=== PATIENT | female | born 1935 | race African-American/Black ===

== ENCOUNTER 2017-03-07 16:17 | Emergency (ER) | payer MEDICARE, OTHER ==
[~2017-03-07] VITALS: Ht 170.2 cm; Wt 86.2 kg
[~2017-03-07 16:17] MED LIST: ADULT LOW DOSE81 MG PO; AVAPRO300 MG; AVAPRO300 MG PO; BACTRIM DS TAB1 EACH PO; CARVEDILOL25 MG PO; CENTRUM COMPLE1 EACH PO; CLONIDINE; CLORPRES 0.1-11 EACH PO; DARVOCET-N 1001 EACH PO; FUROSEMIDE 40 M40 M1 PO; GLUCOPHAGE850 MG PO; JANUVIA100 MG PO; LOVASTAT10; LOVASTAT10 PO; MOBIC15 MG PO; NORVASC 2.5 MG2.5 MG PO; ONE-A-DAY WOMENS PO; PHENERGAN 25 MG25 M1 PO; PRANDIN; TRAMADOL 50 MG50 MG PO
[2017-03-07 17:05] VITALS: BP 144/84
--- NOTE | 2017-03-11 16:38 | EKG ---
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 : 1935 Requested By: Helen Beltran Order Number: [id number] MD: Arash Rodriguez Measurements Intervals [place] Rate: 60 P: 47 MN: 138 QRS: 46 QRSD: 102 T: 12 QT: 423 QTc: 423 Interpretive Statements Sinus rhythm Probable left atrial enlargement Compared to ECG 02/16/2015 10:32:42 No significant changes Electronically Signed On 03-11-2017 16:38:08 CARBIDE TOOL MAKER by Arash Rodriguez [email or web address] <ELECTRONICALLY SIGNED> By: Arash Rodriguez MD, [facility] 03/11/17 1638 182 19 Arash Rodriguez MD, FACC /EPI
== END 2017-03-07 17:06 | disposition home or self-care (01) ==
LOC: M.ERS 16:17
DX: S09.90XA Unspecified injury of head, initial encounter (principal); I10 Essential (primary) hypertension; E11.9 Type 2 diabetes mellitus without complications; Z88.1 Allergy status to other antibiotic agents; Z88.6 Allergy status to analgesic agent; Z88.8 Allergy status to other drugs, medicaments and biological substances; W22.8XXA Striking against or struck by other objects, initial encounter; Y93.89 Activity, other specified; Y92.89 Other specified places as the place of occurrence of the external cause; Y99.8 Other external cause status

== ENCOUNTER 2017-03-10 16:39 | Emergency (ER) | payer MEDICARE, OTHER ==
[~2017-03-10] VITALS: Ht 170.2 cm; Wt 86.2 kg
[2017-03-10 17:33] LABS: ABSOLUTE BASOPHILS 0.1 thou/uL (0.0-0.2); ABSOLUTE EOSINOPHILS 0.2 thou/uL (0.0-0.7); ABSOLUTE LYMPHOCYTES 2.3 thou/uL (0.8-5.3); ABSOLUTE MONOCYTES 0.5 thou/uL (0.0-1.2); ABSOLUTE NEUTROPHILS 3.2 thou/uL (1.6-8.1); BASOPHILS 1.7 %; EOSINOPHILS 3.3 %; HEMATOCRIT 38.2 % (37.0-47.0); HEMOGLOBIN 12.4 gm/dL (12.0-15.0); LYMPHOCYTES 37.1 %; MCH 30.1 pg (26.0-34.0); MCHC 32.5 g/dL (28.0-37.0); MCV 92.7 fL (80.0-100.0); MONOCYTES 7.8 %; MPV 8.4 fl. (7.2-11.1); NUCLEATED RBCS 0 /100WBC; PLATELET COUNT* 257 thou/uL (150-400); POLYS 50.1 %; RBC 4.12 mil/uL (4.20-5.00); RDW-CV 13.9 % (10.5-14.5); WBC 6.3 thou/uL (4.0-11.0)
[2017-03-10 17:41] LABS: APTT 27.2 Seconds (25.0-31.3); INR 1.1; PROTIME 10.7 Seconds (9.20-11.50)
[2017-03-10 17:47] LABS: ANION GAP 9 mmol/L (7-16); BUN 15 mg/dL (7-18); CHLORIDE 95 mmol/L (98-107); CO2 30 mmol/L (21-32); CREATININE 0.9 mg/dL (0.6-1.3); GLUCOSE 94 mg/dL (70-99); POTASSIUM 3.9 mmol/L (3.5-5.1); SODIUM 134 mmol/L (136-145)
[2017-03-10 17:52] LABS: ALBUMIN 3.9 g/dL (3.4-5.0); ALKALINE PHOSPHATASE 125 U/L (46-116); SGOT 20 U/L (15-37); SGPT 19 U/L (30-65); TOTAL BILIRUBIN 0.4 mg/dL (<0.1-1.0); TOTAL PROTEIN 7.5 g/dL (6.4-8.2); TROPONIN-I LEVEL <0.06 ng/mL (<0.06)
[2017-03-10 18:40] VITALS: BP 158/86
--- NOTE | 2017-03-11 16:38 | EKG ---
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
== END 2017-03-10 18:41 | disposition home or self-care (01) ==
LOC: M.ERS 16:39
PROVIDERS: Nurse Practitioner Family
DX: I10 Essential (primary) hypertension (principal); E11.9 Type 2 diabetes mellitus without complications; Z88.1 Allergy status to other antibiotic agents; Z88.8 Allergy status to other drugs, medicaments and biological substances; Z88.6 Allergy status to analgesic agent

== ENCOUNTER 2017-07-05 00:23 | Inpatient (IN) | payer MEDICARE, OTHER ==
[2017-07-05] VITALS (8 sets, daily range): BP systolic 119–182; BP diastolic 71–96
[~2017-07-05] VITALS: Ht 172.7 cm; Wt 83.9 kg
[2017-07-05 00:41] LABS: ABSOLUTE LYMPHOCYTES 1.4 thou/uL (0.8-5.3); ABSOLUTE MONOCYTES 0.5 thou/uL (0.0-1.2); EOSINOPHILS 1.2 %; HEMATOCRIT 35.7 % (37.0-47.0); HEMOGLOBIN 12.2 gm/dL (12.0-15.0); LYMPHOCYTES 34.8 %; MCH 30.8 pg (26.0-34.0); MCHC 34.2 g/dL (28.0-37.0); MONOCYTES 13.3 %; MPV 6.8 fl. (7.2-11.1); NUCLEATED RBCS 0 /100WBC; PLATELET COUNT* 251 thou/uL (150-400); POLYS 49.7 %; RBC 3.96 mil/uL (4.20-5.00); RDW-CV 14.7 % (10.5-14.5); WBC 4.1 thou/uL (4.0-11.0)
[2017-07-05 01:21] LABS: ANION GAP 6 mmol/L (7-16); BUN 10 mg/dL (7-18); CALCIUM 9.2 mg/dL (8.5-10.1); CHLORIDE 93 mmol/L (98-107); CO2 29 mmol/L (21-32); CREATININE 0.9 mg/dL (0.6-1.3); GLUCOSE 120 mg/dL (70-99); POTASSIUM 3.9 mmol/L (3.5-5.1); SODIUM 128 mmol/L (136-145)
[2017-07-05 01:26] LABS: PROTIME 10.1 Seconds (9.20-11.50)
[2017-07-05 01:32] LABS: ALBUMIN 3.7 g/dL (3.4-5.0); ALKALINE PHOSPHATASE 126 U/L (46-116); NT-PRO BRAIN NAT PEPTIDE 248 pg/mL (<300); SGOT 15 U/L (15-37); SGPT 17 U/L (30-65); TOTAL BILIRUBIN 0.3 mg/dL (<0.1-1.0); TOTAL PROTEIN 7.2 g/dL (6.4-8.2); TROPONIN-I LEVEL <0.06 ng/mL (<0.06)
[2017-07-05 02:17] LABS: URINE BILIRUBIN NEGATIVE (Negative); URINE BLOOD NEGATIVE (Negative); URINE CLARITY CLEAR; URINE COLOR YELLOW; URINE GLUCOSE-RANDOM NEGATIVE (Negative); URINE KETONES NEGATIVE (Negative); URINE LEUKOCYTES-REFLEX NEGATIVE (Negative); URINE NITRITE-REFLEX NEGATIVE (Negative); URINE PROTEIN NEGATIVE (Negative); URINE SPECIFIC GRAVITY 1.015 (1.005-1.030); URINE UROBILINOGEN 0.2 E.U./dl (0.2-1.0)
--- NOTE | 2017-07-05 09:00 | NUR ---
ASSUMED PT. CARE AND RECEIVED REPORT AT 0730. PT A/OX4, VSS WITH BP AT 146/83, MONITOR ON TRACING SB. PT. DENIES CURRENT PAIN, BUT STATES HER LEFT HAND IS HURTING ON/OFF. ON RA @ 98%. FULL ASSESSMENT COMPLETED, REFER TO CHARTING. IVF'S INFUSING PER ORDERS. FALL PRECAUTIONS IN PLACE, CALL LIGHT IN REACH, WILL CONTINUE WITH PLAN OF CARE.
[2017-07-05 11:21] LABS: CALCIUM 8.5 mg/dL (8.5-10.1); CREATININE 0.8 mg/dL (0.6-1.3); POTASSIUM 3.4 mmol/L (3.5-5.1)
--- NOTE | 2017-07-05 11:35 | EKG ---
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 07/05/17 1134 D: 0533 Arash Rodriguez MD, FACC /EPI
--- NOTE | 2017-07-05 20:17 | NUR ---
PT. STABLE THROUGH OUT SHIFT. NO NEW COMPLAINTS, AND STATES LEFT HAND NOT LONGER HURTS. UP TO BATHROOM SEVERAL TIMES WITH ASSISTANCE THROUGH OUT THE DAY. ORTHOSTATICS COMPLETED PER ORDERS, WNL AT THIS TIME. HOURLY ROUNDING COMPLETED THROUGH OUT THE DAY FOR PT. SAFETY.
--- NOTE | 2017-07-05 23:15 | NUR ---
ASSUMED CARE OF PT AT 1900. PT IS ALERT AND ORIENTED. VSS. PERRLA. NO COMPLAINTS OF PAIN. UP WITH STAND BY ASSIST. PT IS IN SINUS RYTHM ON THE TELEMETRY. PT IS RESTING COMFORTABLY IN BED. RESPIRATIONS ARE EVEN AND NONLABORED. WILL CONTINUE TO MONITOR PT.
[2017-07-06] VITALS: BP 134/75
[2017-07-06 04:00] VITALS: BP 136/82
[2017-07-06 05:31] LABS: CALCIUM 8.4 mg/dL (8.5-10.1); CREATININE 0.8 mg/dL (0.6-1.3); MAGNESIUM 1.7 mg/dL (1.8-2.4); POTASSIUM 4.2 mmol/L (3.5-5.1)
[2017-07-06 08:00] VITALS: BP 145/73
[2017-07-06 11:10] VITALS: BP 145/73
[2017-07-06 12:13] VITALS: BP 116/72
[2017-07-06 14:43] VITALS: BP 116/72
--- NOTE | 2017-07-06 16:22 | NUR ---
I ASSUMED CARE OF THE PATIENT AT 0700. SHE IS ALERT AND ORIENTED X4 AND IS UP AD DANTE. PATIENT IS CALM AND KIND. BED IS IN THE LOW LOCKED POSIION AND CALL LIGHT IS IN REACH. HOURLY ROUNDING WAS COMPLETED AND PATIENT NEEDS WERE MET. PAIN IS DENIED. SHE D/C'D TO HOME AT 1530 WITH A PERSONAL VEHICLE AND MEDS WERE PICKED UP FROM PHARMACY. IV WAS D/C'D INTACT. PATIENT'S VITAL SIGNS HAVE BEEN STABLE. DISCHARGE GIVEN AND PATIENT EXPRESSES UNDERSTANDING.
== END 2017-07-06 15:41 | disposition home or self-care (01) | DRG 641 ==
LOC: M.ERS 00:23 → M.TBA-ER 03:06 → M.2W 03:06
PROVIDERS: Emergency Medicine; ADMIT Internal Medicine
DX: E87.1 Hypo-osmolality and hyponatremia (principal); I16.1 Hypertensive emergency; I10 Essential (primary) hypertension; I87.8 Other specified disorders of veins; E11.9 Type 2 diabetes mellitus without complications; Z88.1 Allergy status to other antibiotic agents; Z88.8 Allergy status to other drugs, medicaments and biological substances; Z79.899 Other long term (current) drug therapy

== ENCOUNTER 2017-07-11 00:41 | Inpatient (IN) | payer MEDICARE, OTHER ==
[2017-07-11] VITALS (8 sets, daily range): BP systolic 113–154; BP diastolic 62–109
[~2017-07-11] VITALS: Ht 167.6 cm; Wt 88.5 kg
[2017-07-11 01:10] LABS: ABSOLUTE LYMPHOCYTES 1.1 thou/uL (0.8-5.3); ABSOLUTE MONOCYTES 0.3 thou/uL (0.0-1.2); ABSOLUTE NEUTROPHILS 0.7 thou/uL (1.6-8.1); BASOPHILS 0.7 %; EOSINOPHILS 1.7 %; HEMATOCRIT 33.4 % (37.0-47.0); HEMOGLOBIN 11.7 gm/dL (12.0-15.0); LYMPHOCYTES 52.8 %; MCH 30.7 pg (26.0-34.0); MCHC 35.2 g/dL (28.0-37.0); MCV 87.3 fL (80.0-100.0); MONOCYTES 12.5 %; MPV 7.1 fl. (7.2-11.1); NUCLEATED RBCS 0 /100WBC; PLATELET COUNT* 203 thou/uL (150-400); POLYS 32.3 %; RBC 3.83 mil/uL (4.20-5.00); RDW-CV 14.5 % (10.5-14.5); WBC 2.2 thou/uL (4.0-11.0)
[2017-07-11 01:22] LABS: CALCIUM 8.6 mg/dL (8.5-10.1); CREATININE 0.7 mg/dL (0.6-1.3); POTASSIUM 3.7 mmol/L (3.5-5.1)
[2017-07-11 01:27] LABS: ALBUMIN 3.5 g/dL (3.4-5.0); TOTAL BILIRUBIN 0.4 mg/dL (<0.1-1.0); TOTAL PROTEIN 6.6 g/dL (6.4-8.2)
[2017-07-11 01:54] LABS: URINE BILIRUBIN NEGATIVE (Negative); URINE BLOOD TRACE (Negative); URINE CLARITY CLEAR; URINE COLOR YELLOW; URINE GLUCOSE-RANDOM NEGATIVE (Negative); URINE KETONES NEGATIVE (Negative); URINE LEUKOCYTES-REFLEX NEGATIVE (Negative); URINE NITRITE-REFLEX NEGATIVE (Negative); URINE PROTEIN NEGATIVE (Negative); URINE UROBILINOGEN 0.2 E.U./dl (0.2-1.0)
[2017-07-11 07:16] LABS: ALBUMIN 3.5 g/dL (3.4-5.0); CALCIUM 8.5 mg/dL (8.5-10.1); CREATININE 0.5 mg/dL (0.6-1.3); POTASSIUM 3.5 mmol/L (3.5-5.1); TOTAL BILIRUBIN 0.5 mg/dL (<0.1-1.0); TOTAL PROTEIN 6.8 g/dL (6.4-8.2)
[2017-07-11 14:07] LABS: CALCIUM 8.4 mg/dL (8.5-10.1); CREATININE 0.6 mg/dL (0.6-1.3); POTASSIUM 3.5 mmol/L (3.5-5.1)
--- NOTE | 2017-07-11 16:07 | 2DMMODE ---
[place] [address] 2 D/M-MODE ECHOCARDIOGRAM Name: CATHLEEN DARBY Room: [address] IN [facility]#: [id number] Admission: 07/11/17 Attend Phys: Jacinto Bustamante Discharge: Date of : 33 Date of Service: 07/11/17 1607 Report #: [id number] THIS REPORT FOR: //name// APPROVED REPORT Study performed: 07/11/2017 11:14:49 EXAM: Comprehensive 2D, Doppler, and color-flow Echocardiogram Patient Location: In-Patient Room #: [facility] Status: routine BSA: 1.94 HR: 59 bpm BP: 133/77 mmHg Rhythm: NSR Other Information Study Quality: Good Indications Hypertension/HDD 2D Dimensions LVEF(%): 69.19 (>50%) IVSd: 8.78 (7-11mm) LVOT Diam: 18.45 (18-24mm) LVDd: 41.52 mm PWd: 8.78 (7-11mm) Ascending Ao: 30.37 (22-36mm) LVDs: 25.55 (25-40mm) Aortic Root: 29.07 mm James's LVEF: 69.19 % Volumes Left Atrial Volume (Systole) LA ESV Index: 25.90 mL/m2 Aortic Valve AoV Peak Jonnie.: 1.51 m/s AO Peak Gr.: 9.11 mmHg LVOT Max P.59 mmHg AO Mean Gr.: 4.68 mmHg LVOT Mean P.75 mmHg LVOT Max V: 1.28 m/s AO V2 VTI: 30.15 cm LVOT Mean V: 0.75 m/s MAT (VTI): 2.26 cm2 LVOT V1 VTI: 25.49 cm Mitral Valve E/A Ratio: 0.74 [place] [address] 2 D/M-MODE ECHOCARDIOGRAM Name: CATHLEEN DARBY Room: [address] IN .R.#: [id number] Admission: 07/11/17 Attend Phys: Jacinto Bustamante Discharge: Date of : 33 Date of Service: 07/11/17 1607 Report #: [id number] MV Decel. Time: 278.81 ms MV E Max Jonnie.: 0.81 m/s MV PHT: 80.85 ms MVA (PHT): 2.72 cm2 TDI E/Lateral E': 10.13 E/Medial E': 9.00 Medial E' Jonnie.: 0.09 m/s Lateral E' Jonnie.: 0.08 m/s Pulmonary Valve PV Peak Jonnie.: 0.92 m/s PV Peak Gr.: 3.36 mmHg Tricuspid Valve TR Peak Gr.: 28.22 mmHg RVSP: 33.00 mmHg Left Ventricle The left ventricle is normal size. There is normal LV segmental wall motion. There is normal left ventricular wall thickness. Left ventricular systolic function is normal. The left ventricular ejection fraction is within the normal range. LVEF is 60-65%. Grade I - abnormal relaxation pattern. Right Ventricle The right ventricle is normal size. The right ventricular systolic function is normal. Atria The left atrium size is normal. The right atrium size is normal. Aortic Valve The aortic valve is normal in structure. No aortic regurgitation is present. There is no aortic valvular stenosis. Mitral Valve The mitral valve is normal in structure. Trace mitral regurgitation. No evidence of mitral valve stenosis. Tricuspid Valve The tricuspid valve is normal in structure. Mild tricuspid regurgitation. The RVSP is 30-35 mmHg. Pulmonic Valve The pulmonary valve is normal in structure. [place] [address] 2 D/M-MODE ECHOCARDIOGRAM Name: CATHLEEN DARBY Room: [address] IN [facility]#: [id number] Admission: 07/11/17 Attend Phys: Jacinto Bustamante Discharge: Date of : 33 Date of Service: 07/11/17 1607 Report #: [id number] Great Vessels The aortic root is normal in size. IVC is normal in size and collapses with >50% inspiration Pericardium There is no pericardial effusion. <Conclusion> LVEF is 60-65%. There is normal LV segmental wall motion. The aortic valve is normal in structure. No aortic regurgitation is present. There is no aortic valvular stenosis. Trace mitral regurgitation. Mild pulmonic regurgitation. Grade I - abnormal relaxation pattern. <ELECTRONICALLY SIGNED> By: Carl Babb MD, FACC 07/11/17 1607 1607 1607 Carl Babb MD, FACC /INF
[2017-07-12] VITALS (7 sets, daily range): BP systolic 122–166; BP diastolic 64–89
[2017-07-12 05:07] LABS: CALCIUM 8.5 mg/dL (8.5-10.1); CREATININE 0.5 mg/dL (0.6-1.3); POTASSIUM 3.9 mmol/L (3.5-5.1)
[2017-07-13] VITALS: BP 159/83
[2017-07-13 04:00] VITALS: BP 163/81
[2017-07-13 05:08] LABS: HEMATOCRIT 32.8 % (37.0-47.0); HEMOGLOBIN 11.6 gm/dL (12.0-15.0); MCH 30.8 pg (26.0-34.0); MCHC 35.5 g/dL (28.0-37.0); MCV 86.7 fL (80.0-100.0); MPV 7.8 fl. (7.2-11.1); RBC 3.78 mil/uL (4.20-5.00); RDW-CV 14.6 % (10.5-14.5); WBC 2.4 thou/uL (4.0-11.0)
[2017-07-13 05:35] LABS: ALBUMIN 3.3 g/dL (3.4-5.0); CALCIUM 8.7 mg/dL (8.5-10.1); CREATININE 0.6 mg/dL (0.6-1.3); MAGNESIUM 1.7 mg/dL (1.8-2.4); POTASSIUM 3.7 mmol/L (3.5-5.1); TOTAL BILIRUBIN 0.4 mg/dL (<0.1-1.0)
[2017-07-13 07:30] VITALS: BP 167/83
[2017-07-13 12:00] VITALS: BP 173/85
[2017-07-13 16:00] VITALS: BP 165/81; BP 177/46
[2017-07-13 20:00] VITALS: BP 162/81
[2017-07-14 00:21] VITALS: BP 157/81
[2017-07-14 04:11] VITALS: BP 171/90
[2017-07-14 05:40] LABS: HEMATOCRIT 33.5 % (37.0-47.0); HEMOGLOBIN 11.7 gm/dL (12.0-15.0); MCH 30.4 pg (26.0-34.0); MCHC 34.9 g/dL (28.0-37.0); MCV 87.1 fL (80.0-100.0); MPV 7.6 fl. (7.2-11.1); RBC 3.85 mil/uL (4.20-5.00); RDW-CV 14.3 % (10.5-14.5); WBC 2.8 thou/uL (4.0-11.0)
[2017-07-14 06:05] LABS: CALCIUM 8.8 mg/dL (8.5-10.1); CREATININE 0.6 mg/dL (0.6-1.3); MAGNESIUM 1.7 mg/dL (1.8-2.4); POTASSIUM 3.6 mmol/L (3.5-5.1)
[2017-07-14 08:15] VITALS: BP 158/83
[2017-07-14 12:07] VITALS: BP 129/75
[2017-07-14 15:37] VITALS: BP 141/83
[2017-07-14 20:00] VITALS: BP 161/80
[2017-07-15] VITALS: BP 141/80
[2017-07-15 04:00] VITALS: BP 133/79
[2017-07-15 05:12] LABS: HEMATOCRIT 33.8 % (37.0-47.0); HEMOGLOBIN 11.8 gm/dL (12.0-15.0); MCH 30.8 pg (26.0-34.0); MCHC 34.9 g/dL (28.0-37.0); MCV 88.1 fL (80.0-100.0); MPV 7.7 fl. (7.2-11.1); RBC 3.84 mil/uL (4.20-5.00); RDW-CV 14.4 % (10.5-14.5); WBC 3.1 thou/uL (4.0-11.0)
[2017-07-15 05:43] LABS: CALCIUM 8.9 mg/dL (8.5-10.1); CREATININE 0.7 mg/dL (0.6-1.3)
[2017-07-15 05:44] LABS: POTASSIUM 4.8 mmol/L (3.5-5.1)
[2017-07-15 07:30] VITALS: BP 144/66
[2017-07-15] MEDS ORDERED: NORVASC 2.5 MG2.5 MG PO (08:12)
[2017-07-15 09:14] VITALS: BP 144/66
[2017-07-15 11:51] VITALS: BP 144/66
== END 2017-07-15 14:30 | disposition home or self-care (01) | DRG 312 ==
LOC: M.ERS 00:41 → M.2W 02:52 → M.TBA-ER 02:52 → M.2W 03:18
PROVIDERS: Emergency Medicine; Family Medicine; Internal Medicine; ADMIT Internal Medicine
DX: I95.2 Hypotension due to drugs (principal); E87.1 Hypo-osmolality and hyponatremia; R65.10 Systemic inflammatory response syndrome (SIRS) of non-infectious origin without acute organ dysfunction; A08.4 Viral intestinal infection, unspecified; T50.995A Adverse effect of other drugs, medicaments and biological substances, initial encounter; I10 Essential (primary) hypertension; E11.9 Type 2 diabetes mellitus without complications; I27.20 Pulmonary hypertension, unspecified; Z79.899 Other long term (current) drug therapy; Z88.1 Allergy status to other antibiotic agents; Z88.8 Allergy status to other drugs, medicaments and biological substances; Y92.89 Other specified places as the place of occurrence of the external cause

== ENCOUNTER 2019-07-04 08:32 | Emergency (ER) | payer MEDICARE, OTHER ==
[~2019-07-04] VITALS: Ht 167.6 cm; Wt 81.7 kg
[2019-07-04] MEDS ORDERED: HYDROCODON-ACE1 EAC7 PO (10:10)
[2019-07-04 10:26] VITALS: BP 120/66
== END 2019-07-04 10:28 | disposition home or self-care (01) ==
LOC: M.ERS 08:32
DX: S01.01XA Laceration without foreign body of scalp, initial encounter (principal); I10 Essential (primary) hypertension; E11.9 Type 2 diabetes mellitus without complications; Z88.1 Allergy status to other antibiotic agents; Z88.8 Allergy status to other drugs, medicaments and biological substances; W22.8XXA Striking against or struck by other objects, initial encounter; Y93.E1 Activity, personal bathing and showering; Y92.89 Other specified places as the place of occurrence of the external cause; Y99.8 Other external cause status